=== PATIENT | female | born 1990 | race Caucasian/White ===

== ENCOUNTER → 2018-02-15 02:49 | Outpatient (CLI) | payer BC, SELFPAY ==
[2018-02-16 11:36] LABS: DHEA Sulfate 787 ug/dl (96-512)
== END ==
PROVIDERS: PCP Nurse Practitioner; Visit Provider Obstetrics & Gynecology Reproductive Endocrinology
DX: Z31.41 Encounter for fertility testing (principal)
CPT/HCPCS: 36415; 82627

== ENCOUNTER 2018-04-05 12:58 | Outpatient (REF) | payer BC, SELFPAY ==
[2018-04-05 19:11] LABS: TSH (W/Ref FT4) 1.53 uIU/mL (0.358-3.74)
== END 2018-04-05 13:18 ==
LOC: NCHCN 12:58
PROVIDERS: PCP Nurse Practitioner; Visit Provider Nurse Practitioner
DX: E03.9 Hypothyroidism, unspecified (principal)
CPT/HCPCS: 84443

== ENCOUNTER 2018-05-19 00:07 | Outpatient (CLI) | payer BC, SELFPAY ==
[2018-05-19 09:57] LABS: HCG Quant, Pregnancy < 1 mIU/mL (1-3)
== END 2018-05-19 00:27 ==
PROVIDERS: PCP Nurse Practitioner; Visit Provider Obstetrics & Gynecology Reproductive Endocrinology
DX: Z32.00 Encounter for pregnancy test, result unknown (principal)
CPT/HCPCS: 36415; 84144; 84702

== ENCOUNTER 2018-06-18 12:08 | Outpatient (CLI) | payer BC, SELFPAY ==
[2018-06-18 14:22] LABS: HCG Quant, Pregnancy < 1 mIU/mL (1-3)
[2018-06-18 23:06] LABS: Progesterone 1.2 ng/ml
== END 2018-06-18 12:28 ==
PROVIDERS: PCP Nurse Practitioner; Visit Provider Obstetrics & Gynecology Reproductive Endocrinology
DX: Z32.00 Encounter for pregnancy test, result unknown (principal)
CPT/HCPCS: 36415; 84144; 84702

== ENCOUNTER 2018-07-23 10:45 | Outpatient (CLI) | payer BC, SELFPAY ==
[2018-07-23 13:31] LABS: HCG Quant, Pregnancy < 1 mIU/mL (1-3)
[2018-07-23 22:58] LABS: Progesterone 1.3 ng/ml
== END 2018-07-23 11:05 ==
PROVIDERS: PCP Nurse Practitioner; Visit Provider Obstetrics & Gynecology Reproductive Endocrinology
DX: Z32.00 Encounter for pregnancy test, result unknown (principal)
CPT/HCPCS: 36415; 84144; 84702

== ENCOUNTER 2018-08-23 00:57 | Outpatient (CLI) | payer BC, SELFPAY ==
[2018-08-23 14:46] LABS: HCG Quant, Pregnancy 1 mIU/mL (1-3)
== END 2018-08-23 01:17 ==
PROVIDERS: PCP Nurse Practitioner; Visit Provider Obstetrics & Gynecology Reproductive Endocrinology
DX: Z32.00 Encounter for pregnancy test, result unknown (principal)
CPT/HCPCS: 36415; 84144; 84702

== ENCOUNTER 2018-10-23 14:44 | Outpatient (CLI) | payer BC, SELFPAY ==
[2018-10-23 17:11] LABS: TSH 4.56 uIU/mL (0.358-3.74)
[2018-10-23 17:36] LABS: HCG Quant, Pregnancy 396 mIU/mL (1-3)
== END 2018-10-23 15:04 ==
PROVIDERS: Obstetrics & Gynecology Reproductive Endocrinology; PCP Nurse Practitioner; Visit Provider Obstetrics & Gynecology Reproductive Endocrinology
DX: Z32.01 Encounter for pregnancy test, result positive (principal); E03.9 Hypothyroidism, unspecified
CPT/HCPCS: 36415; 84443; 84702

== ENCOUNTER 2018-10-25 08:19 | Outpatient (CLI) | payer BC, SELFPAY ==
[2018-10-25 19:06] LABS: HCG Quant, Pregnancy 1324 mIU/mL (1-3)
== END 2018-10-25 08:39 ==
PROVIDERS: PCP Nurse Practitioner; Visit Provider Obstetrics & Gynecology Reproductive Endocrinology
DX: Z32.01 Encounter for pregnancy test, result positive (principal)
CPT/HCPCS: 84702

== ENCOUNTER 2018-11-19 15:39 | Outpatient (REF) | payer BC, SELFPAY ==
[2018-11-19 16:48] LABS: *AMPHETAMINES SCREEN URINE Negative (Negative); *BARBITURATES SCREEN URINE Negative (Negative); *BENZODIAZEPINES SCREEN URINE Negative (Negative); Cannabinoids THC Negative (Negative); Cocaine Screen,Urine Negative (Negative); METHADONE URINE SCREEN Negative (Negative); OPIATES URINE SCREEN Negative (Negative)
[2018-11-19 16:50] LABS: Tricyclic Antidepressants Negative (Negative)
[2018-11-20 14:56] LABS: Chlamydia Result Negative; GC Result Negative; Specimen Description CERVIX
[2018-11-23 13:53] LABS: Buprenorphine Negative; Norbuprenorphine Negative
== END 2018-11-19 15:59 ==
LOC: LBN 15:39
PROVIDERS: PCP Nurse Practitioner; Visit Provider Advanced Practice Midwife
DX: Z34.91 Encounter for supervision of normal pregnancy, unspecified, first trimester (principal); Z11.3 Encounter for screening for infections with a predominantly sexual mode of transmission
CPT/HCPCS: 80307; 87491; 87591; 87086

== ENCOUNTER 2018-11-27 02:03 | Outpatient (CLI) | payer BC, SELFPAY ==
[2018-11-27 09:17] LABS: Abs Immature Grans 0.01 k/cumm (0.0-0.09); Absolute Basophil Count 0.01 k/cumm (0.0-0.2); Absolute Eosinophil Count 0.06 k/cumm (0.0-0.7); Absolute Lymphocyte Count 1.88 k/cumm (1.2-3.4); Absolute Neutrophil Count 5.51 k/cumm (1.2-6.7); Basophils % 0.1; Eosinophils % 0.8; HGB 14.8 g/dL (12.0-15.5); Immature Grans % 0.1; Lymphocytes % 23.6; Mean Corp. HGB Concentration 34.4 g/dL (32.0-36.0); Mean Corpuscular Hemoglobin 29.8 pg (27.0-33.0); Mean Corpuscular Volume 86.7 fL (80-95); Monocytes % 6.3; Neutrophils % 69.1; Platelet Count 240 x1000/uL (130-400); RBC 4.96 m/cumm (4.00-5.20); RBC Distribution Width 12.9 % (11.7-14.6); White Blood Cell Count 7.97 k/cumm (4.4-10.8)
[2018-11-27 09:24] LABS: Glucose,1 Hr (Glucola) 133 mg/dL (80-140)
[2018-11-27 10:08] LABS: TSH (W/Ref FT4) 1.29 uIU/mL (0.358-3.74)
[2018-11-28 09:11] LABS: Varicella IgG Antibody Positive
[2018-11-28 10:09] LABS: Syphilis Serology (RPR) Negative (Negative)
[2018-11-28 10:12] LABS: Rubella IgG Ab (UVM) Positive
[2018-11-28 10:13] LABS: Hepatitis C Ab w Rflx HCV PCR Negative (NEGAT)
[2018-11-28 10:43] LABS: HIV-1/2 Ag & Ab Screen Negative (NEGAT); Hepatitis B Surface Ag Negative (NEGAT)
[2018-11-30 17:40] LABS: Thyroid Stimulating Immunoglob <1.0 TSI index (<=1.3)
== END 2018-11-27 02:23 ==
PROVIDERS: PCP Nurse Practitioner; Visit Provider Advanced Practice Midwife
DX: Z34.91 Encounter for supervision of normal pregnancy, unspecified, first trimester (principal); Z11.4 Encounter for screening for human immunodeficiency virus [HIV]; Z11.59 Encounter for screening for other viral diseases; Z01.84 Encounter for antibody response examination
CPT/HCPCS: 80055; 82950; 86787; 86803; 86850; 86900; 86901; 87340; 87389; 84443; 84445; 86592; 86762

== ENCOUNTER 2018-12-04 10:08 | Outpatient (CLI) | payer BC, SELFPAY ==
[2018-12-04 10:32] LABS: Kit/Specimen SENT
== END 2018-12-04 10:28 ==
PROVIDERS: PCP Nurse Practitioner; Visit Provider Advanced Practice Midwife
DX: Z34.01 Encounter for supervision of normal first pregnancy, first trimester (principal); Z36.89 Encounter for other specified antenatal screening
CPT/HCPCS: 36415

== ENCOUNTER 2018-12-18 09:12 | Outpatient (CLI) | payer BC, SELFPAY ==
[2018-12-18 09:38] LABS: Kit/Specimen SENT
== END 2018-12-18 09:32 ==
PROVIDERS: PCP Nurse Practitioner; Visit Provider Advanced Practice Midwife
DX: Z34.91 Encounter for supervision of normal pregnancy, unspecified, first trimester (principal)
CPT/HCPCS: 36415

== ENCOUNTER 2019-01-17 01:59 | Outpatient (CLI) | payer BC, SELFPAY ==
[2019-01-21 11:46] LABS: AFP 36.5 ng/mL; Calculated age at EDD 31 years; Cigarette smoking status non-smoker; GA used in risk estimate Scan estimate; IVF Pregnancy No; Initial or repeat testing Initial testing; Insulin dependent diabetes No; Maternal Weight 192 lbs; Number of Fetuses 1; Prev Pregnancy w/NTD No; RECOMMENDED FOLLOW UP None.; Results Summary Normal risk
== END 2019-01-17 02:19 ==
PROVIDERS: PCP Nurse Practitioner; Visit Provider Advanced Practice Midwife
DX: Z34.91 Encounter for supervision of normal pregnancy, unspecified, first trimester (principal); Z36.89 Encounter for other specified antenatal screening
CPT/HCPCS: 36415; 82105

== ENCOUNTER 2019-02-11 00:15 | Outpatient (CLI) | payer BC, SELFPAY ==
--- NOTE | 2019-02-11 13:23 | DI.US_ITS ---
SYMPTOMS/DIAGNOSIS: ANATOMICAL SCAN, Z34.90 OB ULTRASOUND: Predicted Gestational Age: Indication/History: 20+1 Wks Range: 19+1 to 21+1 Prior US done on: Determined by: First US LMP History EDC by prior US: 06/30/19 For multiple gestations: Baby PLACENTA: Grade: I Location: X Anterior Posterior PRESENTATION: RT LT LOW LYING PREVIA Cephalic Trans (Head RT LT ) Varied X Breech BIOMETRY: Anatomy Identified: BPD: 48 mm 20+4 wks 4-chamber Heart X Heart Rate 163 BPM HC: 183 mm 20+5 wks LVOT X Post Fossa X AC: 151 mm 20+3 wks RVOT X Ventricles X FL: 34 mm 20+4 wks Stomach X Nose X Bladder X Lips X Cisterna Magna: 3 mm CI: 83 Kidneys X Palate X Cerebellum: 2.01 cm 3-vessel cord X Spine X EFW: 356 grms 64% Cord Insertion X NS= not seen Composite Age (US) 20+4 wks Many abnormalities cannot be diagnosed. A normal exam does not exclude congenital abnormality. EDC by US: 06/27/19 Amniotic Fluid Index: Normal RUQ: LUQ: RLQ: LLQ: Total: cm Biophysical Profile: Score 0/2 ART (>2cm) Respirations (>30 sec) Body flexion/extension Extremity flexion/extension TOTAL SCORE COMMENTS: OB ultrasound was performed utilizing second trimester protocol. biometry is consistent with gestational age of 20 weeks 4 days and an EDC of 06/27/19. The placenta is anterior with no evidence of placenta previa. There is a normal quantity of amniotic fluid. anomaly screen is within normal limits as per the attached checklist.
== END 2019-02-11 00:35 ==
PROVIDERS: PCP Nurse Practitioner; Visit Provider Advanced Practice Midwife
DX: Z34.90 Encounter for supervision of normal pregnancy, unspecified, unspecified trimester (principal)
CPT/HCPCS: 76805

== ENCOUNTER 2019-02-11 15:07 | Outpatient (CLI) | payer BC, SELFPAY ==
[2019-02-11 16:32] LABS: TSH (W/Ref FT4) 0.44 uIU/mL (0.36-3.74)
== END 2019-02-11 15:27 ==
PROVIDERS: PCP Nurse Practitioner; Visit Provider Advanced Practice Midwife
DX: E03.9 Hypothyroidism, unspecified (principal)
CPT/HCPCS: 36415; 84443

== ENCOUNTER 2019-04-08 08:41 | Outpatient (CLI) | payer BC, SELFPAY ==
[2019-04-08 15:42] LABS: Glucose,1 Hr (Glucola) 130 mg/dL (80-140)
[2019-04-08 15:58] LABS: HCT 38.5 % (36.0-46.0); HGB 13.1 g/dL (12.0-15.5); Mean Corpuscular Hemoglobin 30.3 pg (27.0-33.0); Mean Corpuscular Volume 88.9 fL (80-95); Mean Platelet Volume 10.3 fL (8.0-11.0); Platelet Count 238 x1000/uL (130-400); RBC 4.33 m/cumm (4.00-5.20); RBC Distribution Width 13.4 % (11.7-14.6); White Blood Cell Count 9.46 k/cumm (4.4-10.8)
[2019-04-08 16:57] LABS: FREE T4 1.08 ng/dL (0.76-1.46); TSH 0.56 uIU/mL (0.36-3.74)
== END 2019-04-08 09:01 ==
PROVIDERS: Advanced Practice Midwife; PCP Nurse Practitioner; Visit Provider Advanced Practice Midwife
DX: Z34.93 Encounter for supervision of normal pregnancy, unspecified, third trimester (principal); E03.9 Hypothyroidism, unspecified
CPT/HCPCS: 36415; 82950; 85027; 84439; 84443

== ENCOUNTER 2019-04-22 16:11 | Outpatient (CLI) | payer BC, SELFPAY ==
[2019-04-29 17:54] LABS: Thyroid Stimulating Immunoglob <1.0 TSI index (<=1.3)
== END 2019-04-22 16:31 ==
PROVIDERS: PCP Nurse Practitioner; Visit Provider Advanced Practice Midwife
DX: E05.00 Thyrotoxicosis with diffuse goiter without thyrotoxic crisis or storm (principal)
CPT/HCPCS: 36415; 84445

== ENCOUNTER 2019-05-08 02:03 | Outpatient (CLI) | payer BC, SELFPAY ==
--- NOTE | 2019-05-08 15:45 | DI.US_ITS ---
EXAM: US OB ART WEIGHT CLINICAL HISTORY: check growth, neck/thyroid for enlargement, graves disease, E05.00 TECHNIQUE: Ultrasound performed using standard protocol. COMPARISON: US OB 2-3 trimester from 02/11/2019 FINDINGS: Ob ultrasound was performed utilizing 3rd trimester protocol. biometry is consistent with ge stational age of 32 weeks 5 days and EDC of 06/28/2019. Estimated weight is 2018 grams which is at the 46th percentile for predicted gestational age. Placenta is anterior with no evidence of placenta previa. There is visually a normal quantity of amniotic fluid and the ART is 19. Fetus is in cephalic presentation. cardiac activity observed at a rate of 150 BPM.
== END 2019-05-08 02:23 ==
PROVIDERS: PCP Nurse Practitioner; Visit Provider Advanced Practice Midwife
DX: E05.00 Thyrotoxicosis with diffuse goiter without thyrotoxic crisis or storm (principal); O99.283 Endocrine, nutritional and metabolic diseases complicating pregnancy, third trimester
CPT/HCPCS: 76816

== ENCOUNTER 2019-06-07 01:58 | Outpatient (CLI) | payer BC, SELFPAY ==
--- NOTE | 2019-06-07 10:09 | DI.US_ITS ---
EXAM: US OB ART AND WEIGHT CLINICAL HISTORY: TECHNIQUE: Ultrasound performed using standard protocol. COMPARISON: US OB ART WEIGHT from 05/08/2019 FINDINGS: There is a single living intrauterine gestation. The fetus is in the cephalic presentation. h eart rate is 137 beats per minute. The neck was visualized and appears unremarkable. There appears to be normal flexion of the ne ck. A complete anatomic evaluation was not performed at this time. Estimated weight is 2853 grams, which is the 38th percentile. Amniotic fluid index is 12.4 centimeters. Visually the amniotic fluid appears within normal limits. The placenta is anterior without evidence of previa. IMPRESSION: Single living intrauterine gestation. Estimated sonographic age is 35 weeks 5 days.
== END 2019-06-07 02:18 ==
PROVIDERS: PCP Nurse Practitioner; Visit Provider Advanced Practice Midwife
DX: Z34.93 Encounter for supervision of normal pregnancy, unspecified, third trimester (principal); Z36.2 Encounter for other antenatal screening follow-up
CPT/HCPCS: 76816

== ENCOUNTER 2019-06-07 10:43 | Outpatient (CLI) | payer BC, SELFPAY ==
[2019-06-07 12:18] LABS: TSH (W/Ref FT4) 1.76 uIU/mL (0.36-3.74)
== END 2019-06-07 11:03 ==
PROVIDERS: PCP Nurse Practitioner; Visit Provider Advanced Practice Midwife
DX: O99.283 Endocrine, nutritional and metabolic diseases complicating pregnancy, third trimester (principal)
CPT/HCPCS: 36415; 84443

== ENCOUNTER 2019-06-07 12:00 | Outpatient (REF) | payer BC, SELFPAY ==
[2019-06-07 14:57] LABS: *AMPHETAMINES SCREEN URINE Negative (Negative); *BARBITURATES SCREEN URINE Negative (Negative); *BENZODIAZEPINES SCREEN URINE Negative (Negative); Cannabinoids THC Negative (Negative); Cocaine Screen,Urine Negative (Negative); METHADONE URINE SCREEN Negative (Negative); OPIATES URINE SCREEN Negative (Negative)
[2019-06-07 15:13] LABS: Tricyclic Antidepressants Negative (Negative)
[2019-06-13 07:31] LABS: Buprenorphine Negative; Norbuprenorphine Negative
== END 2019-06-07 12:20 ==
LOC: LBN 12:00
PROVIDERS: PCP Nurse Practitioner; Visit Provider Advanced Practice Midwife
DX: Z34.93 Encounter for supervision of normal pregnancy, unspecified, third trimester (principal); Z36.85 Encounter for antenatal screening for Streptococcus B
CPT/HCPCS: 80307; 87081

== ENCOUNTER 2019-06-29 16:03 | Inpatient (IN) | payer BC, SELFPAY ==
[2019-06-29 16:26] LABS: HCT 38.4 % (36.0-46.0); HGB 13.1 g/dL (12.0-15.5); Mean Corp. HGB Concentration 34.1 g/dL (32.0-36.0); Mean Corpuscular Hemoglobin 30.1 pg (27.0-33.0); Mean Corpuscular Volume 88.3 fL (80-95); Platelet Count 190 x1000/uL (130-400); RBC 4.35 m/cumm (4.00-5.20); RBC Distribution Width 13.6 % (11.7-14.6); White Blood Cell Count 9.32 k/cumm (4.4-10.8)
[2019-06-29] MEDS: Lactated Ringers 1,000 ML 125 ML IV (16:41)
[2019-06-29] MEDS: Normal Saline Flush 10 ML SYR IVP (16:43)
[2019-06-29] MEDS: Penicillin G POT. 5,000,000 UNITS in Normal Saline 100 ML 200 UNITS IVPB (16:44)
[2019-06-29] MEDS: Oxytocin 10 UNITS/ML VIAL IM (23:10)
[2019-06-30] MEDS: Hamamelis Leaf/Glycerin 100 EACH BOX PR (01:44)
[2019-06-30 07:04] LABS: HCT 34.9 % (36.0-46.0); HGB 11.7 g/dL (12.0-15.5); Mean Corp. HGB Concentration 33.5 g/dL (32.0-36.0); Mean Corpuscular Hemoglobin 29.8 pg (27.0-33.0); Mean Platelet Volume 11.2 fL (8.0-11.0); Platelet Count 213 x1000/uL (130-400); RBC 3.92 m/cumm (4.00-5.20); RBC Distribution Width 13.6 % (11.7-14.6); White Blood Cell Count 16.61 k/cumm (4.4-10.8)
[2019-06-30] MEDS: Methylergonovine 0.2 MG/ML VIAL IM (10:19)
[2019-06-30] MEDS: Ibuprofen 600 MG TAB PO ×2 (16:27→23:15)
[2019-06-30] MEDS: Acetaminophen 325 MG TAB 650 MG PO ×2 (16:27→23:15)
[2019-06-30] MEDS: Methylergonovine 0.2 MG TAB PO (18:27)
[2019-07-01] MEDS: Methylergonovine 0.2 MG TAB PO (01:59)
[2019-07-01] MEDS: Ibuprofen 600 MG TAB PO (08:14)
[2019-07-01] MEDS: Acetaminophen 325 MG TAB 650 MG PO (08:14)
== END 2019-07-01 11:30 | disposition home or self-care (01) | DRG 807 ==
PROVIDERS: Admitting Provider Advanced Practice Midwife; PCP Nurse Practitioner; Visit Provider Advanced Practice Midwife
DX: O70.0 First degree perineal laceration during delivery (principal); Z37.0 Single live birth; Z3A.39 39 weeks gestation of pregnancy; O69.1XX0 Labor and delivery complicated by cord around neck, with compression, not applicable or unspecified; O99.824 Streptococcus B carrier state complicating childbirth; O42.02 Full-term premature rupture of membranes, onset of labor within 24 hours of rupture; O99.284 Endocrine, nutritional and metabolic diseases complicating childbirth; O90.89 Other complications of the puerperium, not elsewhere classified; N31.2 Flaccid neuropathic bladder, not elsewhere classified; E89.0 Postprocedural hypothyroidism; Z79.82 Long term (current) use of aspirin
CPT/HCPCS: 36415; 85027; 86850; 86900; 86901; J2210; J2540; J2590

== ENCOUNTER 2020-05-04 18:58 | Outpatient (REF) | payer BC, SELFPAY ==
[2020-05-04 19:16] LABS: TSH (W/Ref FT4) 0.06 uIU/mL (0.36-3.74)
[2020-05-04 19:33] LABS: FREE T4 1.35 ng/dL (0.76-1.46)
== END 2020-05-04 19:18 ==
LOC: NCHCN 18:58
PROVIDERS: PCP Nurse Practitioner; Visit Provider Nurse Practitioner
DX: E03.9 Hypothyroidism, unspecified (principal)
CPT/HCPCS: 84439; 84443

== ENCOUNTER 2021-05-12 10:40 | Outpatient (REF) | payer BC, SELFPAY ==
[2021-05-12 16:54] LABS: TSH (W/Ref FT4) 0.46 uIU/mL (0.36-3.74)
== END 2021-05-12 10:41 | disposition home or self-care (01) ==
LOC: NCHCN 10:40
PROVIDERS: PCP Nurse Practitioner; Visit Provider Nurse Practitioner
DX: E03.9 Hypothyroidism, unspecified (principal)
CPT/HCPCS: 84443

== ENCOUNTER 2021-11-08 11:37 | Outpatient (REF) | payer BC, SELFPAY ==
--- NOTE | 2021-11-08 10:00 | PAPFT_PTH ---
PATIENT: Michela Argueta LOC: [facility] U#:[id number] AGE/SX: 31/F ROOM: RE11/08/[address]: Ade Altamirano CNM : 1990 BED: DIS: 11/08/2021 SPEC #: [id number] RECD: 11/08/21 13:13 STATUS: EZEQUIEL REQ #: [id number] JANETTE: 11/08/21 10:[address]: Ade Altamirano DEPT: [facility] Cytology RECD BY: Meka Manzanares ENTERED: 11/08/21 13:14 SP TYPE: PAPFT OTHR DR: Roxann Alcantar Tissues: 1 - CX/ENDOCX FOR PAP SMEARS Procedures: PAP THIN PREP/[facility] Screening HPV DNA PROBE Comments: [id number]
== END 2021-11-08 11:38 | disposition home or self-care (01) ==
LOC: LBN 11:37
PROVIDERS: PCP Nurse Practitioner; Visit Provider Advanced Practice Midwife
DX: Z12.4 Encounter for screening for malignant neoplasm of cervix (principal); Z87.410 Personal history of cervical dysplasia; Z11.51 Encounter for screening for human papillomavirus (HPV)
CPT/HCPCS: 88142; 87624

== ENCOUNTER 2022-07-25 16:53 | Outpatient (REF) | payer BC, SELFPAY ==
[2022-07-25 17:22] LABS: Calculated LDL 110 mg/dL (<100); Cholesterol 196 mg/dL (<200); HDL Cholesterol 50 mg/dL (40-60); TSH 0.48 uIU/mL (0.36-3.74); Triglyceride 181 mg/dL (<150)
== END 2022-07-25 16:54 | disposition home or self-care (01) ==
LOC: NCHCN 16:53
PROVIDERS: PCP Physician Assistant; Visit Provider Physician Assistant
DX: E03.9 Hypothyroidism, unspecified (principal); Z13.220 Encounter for screening for lipoid disorders
CPT/HCPCS: 80061; 84443

== ENCOUNTER 2022-12-12 02:10 | Outpatient (CLI) | payer BC, SELFPAY ==
--- NOTE | 2022-12-12 | DI.RAD_ITS ---
Exam(s) XR FOOT LT COMPLETE EXAM: XR FOOT LT COMPLETE CLINICAL HISTORY: LT FOOT JOINT PAIN, M79.672, CHRONIC PAIN OVER DORSUM OF LT FOOT. TECHNIQUE: 2D digital imaging was performed. COMPARISON: No exams were available for comparison FINDINGS: 3 views No evidence of fracture nor diastasis of the Anna sophia joint. Bone density normal. No osseous lesio ns. No erosions. Bipartite medial hallucal sesamoid noted. Moderate size inferior calcaneal spur n oted. IMPRESSION: As above. DATA REPOSITORY: RADIATION DOSE DELIVERED:
== END 2022-12-12 02:30 ==
LOC: DI 02:11
PROVIDERS: PCP Physician Assistant; Visit Provider Physician Assistant
DX: M79.672 Pain in left foot (principal)
CPT/HCPCS: 73630

== ENCOUNTER 2022-12-19 07:50 | Emergency (ER) | payer BC, SELFPAY ==
[2022-12-19 07:54] VITALS: BP 129/67; PULSE 82; RESP 18; TEMP 37.1; O2SAT 99
--- NOTE | 2022-12-19 08:06 | DI.CT_ITS ---
Exam(s) CT LUMBAR SPINE RECONS CT ABDOMEN PELVIS W EXAM: CT ABDOMEN PELVIS W CLINICAL HISTORY: left lower abdomen and back pain. TECHNIQUE: Imaging Protocol: Axial computed tomography images with coronal and sagittal reformatted images were created and reviewed CONTRAST MATERIAL: Intravenous: Omnipaque 350 Contrast volume:100 ml Oral: / no COMPARISON: No exams were available for comparison FINDINGS: ABDOMEN: Lung Bases: Normal where visualized. Liver: Normal density. No measurable mass. Gallbladder and biliary tract: No radiodense calculus or dilation. Pancreas: Normal density, no abnormal calcifications or inflammatory process. Spleen: Normal. Kidneys: Normal size, contour and axis. No radiodense stones or obstructive uropathy. No suspicious m asses seen. Adrenal glands: No masses seen. Abdominal Aorta: Abdominal portion non-dilated. Soft tissues: Unremarkable. PELVIS: Bladder: No gross wall thickening. No calculi.No focal mass. Bowel:: Nearly free of stool. No obstruction. No bowel wall thickening. Appendix normal. Peritoneal cavity: No ascites, collection or mesenteric inflammatory response. Bones: Unremarkable for age. Reproductive organs: Within normal limits. Lymph nodes: Unremarkable. CT lumbar spine: Vertebral bodies are intact. No fracture. No lytic or blastic lesion. No evidence of disc herniation. Impression: Unremarkable CT scan of the abdomen and pelvis. Unremarkable lumbar spine. RADIATION DOSE DELIVERED: 1229.6 mGy.cm Total DLP DATA REPOSITORY: All CT scans at this facility are submitted to the National Radiology Data Registry (NRDR) Dose Index Registry (DIR) with the [employer] (A[employer]). RADIATION OPTIMIZATION: All CT scans at this facility use at least one of these dose optimization te chniques: automated exposure control; mA and/or kV adjustment per patient size (includes targeted exa ms where dose is matched to clinical indication); or iterative reconstruction.
--- NOTE | 2022-12-19 08:10 | ED.GENADUL_ITS ---
Discharge Plan Disposition Patient Disposition: Home Condition: Stable Discharge Details Clinical Impression: Lumbar back pain Primary Care Provider: Renato Poole ED Provider: Howard Munguia Home Meds and New Rx's Prescriptions: New cyclobenzaprine 10 mg tablet 10 mg PO TID PRNQty: 20 0RF Continued paroxetine HCl [Paxil] 10 mg tablet 10 mg PO DAILY multivitamin Tablet 1 tab PO DAILY levothyroxine 125 mcg tablet 125 mcg PO DAILY Patient Comments: [facility] follows thyroid levels. Discharge Instructions Instructions: Back Pain (ED) Additional Instructions: Follow up with your primary care provider if not improving within a week if you develop fevers, feel more ill, have difficulty urinating or severe worsening of pain return to the emergency department Medical Decision Making 32 yo female with hx of grave's disease who comes in with cc of lower back and left lower abdomen pain since yesterday morning. Denies falls or trauma, no vaginal discharge or bleeding, no n/v no fevers no chest pain or dyspnea. Denies ivdu, denies difficulty with urination. She can't think of anything that makes the pain better or worse. She arrives stable speaking clearly in no distress. She localizes the pain throughout the lumbar region with the left hurting more then the right. She has no visible or palpable deformities, no rashes or warmth to palpation, no saddle anesthesia, intact distal sensation and pulses. She does have tenderness on abdominal exam in the llq without guarding or rebound. No pain elsewhere on the abdomen. Unclear etiology for the pain though suspect musculoskeletal back pain. No findings on history or exam to suggest cauda equina or spinal epidural abscess. Given location of abdominal pain concern for possible diverituclitis, will proceed with cbc, cmp, lipase and ct abd/pelvis with lumbar spine recon's though concern for fracture is low. Will treat with norflex and toradol and reassess. pt feels better after meds, still no saddle anesthesia and no difficulty urinating. Imaging and labs unremarkable, suspect musculoskeletal back pain. Will have her use ibuprofen and tylenol and prescribe flexeril, advised to f/u w ith pcp, return precautions given Differential Diagnosis Differential Diagnosis: muscle spasm, diveriticulitis, kidney stone Medical Records Medical records reviewed: Yes I reviewed the patient's medical records. Imaging Data Radiologic Study: Attestation: I personally reviewed and interpreted this imaging study as follows: Imaging: CT Scan Radiologist's impression: no acute findings Lab Data Lab results reviewed: Yes I reviewed the patient's lab results. HPI General Mode of arrival: ambulatory . Date/Time Provider Initiated Documentation: 12/19/22 07:57 . Limitations to Documentation: no limitations . Information obtained by: patient . History of Present Illness 32 year old F presents to the emergency department with the chief complaint of lower back pain, described as moderate, Quality is described as aching, Patient started experiencing this day(s) (1) and it has been constant. No relieving factors improve symptom(s), No exacerbating factors reported . Patient notes denies fever/chills. Patient did receive the following treatments prior to arrival, none Related Data Home Medications Medication Instructions Recorded Confirmed levothyroxine 125 mcg tablet 125 mcg PO DAILY 11/08/21 12/19/22 multivitamin 1 tab PO DAILY 11/08/21 12/19/22 paroxetine HCl 10 mg tablet (Paxil) 10 mg PO DAILY 11/08/21 12/19/22 cyclobenzaprine 10 mg tablet 10 mg PO TID PRN #20 tabs 12/19/22 Previous Rx's Medication Instructions Recorded cyclobenzaprine 10 mg tablet 10 mg PO TID PRN #20 tabs 12/19/22 Allergies Allergy/AdvReac Type Severity Reaction Status Date / Time shellfish derived Allergy Verified 12/19/22 08:06 General Stated Complaint: Nk/Back Pain GABRIELA: 3 Review of Systems All systems reviewed & are unremarkable except as noted in HPI and below Constitutional Constitutional: Denies chills, Denies fever(s) and Denies weakness Cardiovascular Cardiovascular: Denies chest pain and Denies dyspnea Respiratory Respiratory: Denies cough and Denies dyspnea Gastrointestinal Gastrointestinal: Denies nausea and Denies vomiting Musculoskeletal Musculoskeletal: Denies joint swelling Neurologic Neurologic: Denies weakness PFSH All Active Problems (Updated 12/19/22 @ 09:45 by Howard Munguia MD) Lumbar back pain (Acute) Well woman exam with routine gynecological exam (Acute) Reproductive mgmt, 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 (Acute) Graves' disease (Acute) BMI 34.0-34.9,adult (Acute) Hypothyroidism (acquired) (Acute) (Acute) Medical History (Updated 12/19/22 @ 09:45 by Howard Munguia MD) Cervical intraepithelial neoplasia grade 1 (05/21/14) Hypothyroid Social History Smoking/Tobacco Use Status: Former Tobacco Use Smoking risk assessment performed?: Yes Alcohol Intake: former Drug use: Never Substance use type: does not use Do you feel safe at home: Yes Do you feel safe in your relationship?: Yes History History 1 Para 1 Hx # Term Pregnancies 1 Multiple births 0 Hx # Pregnancies 0 Ectopic pregnancies 0 AB induced 0 Hx Number of Living Children 1 AB spontaneous 0 Past Pregnancies Del. Date GA/Weeks # Preg Succ Route Wgt Sex Labor Lgth Anesth esia Location Prov Complic 39 No vaginal 3458.642 g Female 8 hrs 41 min [facility] Delivery Date: Last Updated by: Kristin Reaves LPN tight nuchal cord x1; perineal, labial laceration needed repair Exam Const General: no acute distress Orientation: alert HENMT Head: normal to inspection Ears: external ears normal General nose exam: external nose normal Mouth: moist mucous membranes Eyes General: appearance normal, both eyes and all related structures Neck Neck: normal visual inspection Resp Effort & Inspection: normal respiratory effort and able to speak in complete sentences Cardio Rate: regular rate GI Palpation: soft and nontender Back/Spine/Pelvis Back: no CVA tenderness Thoracic/Lumbar Spine: thoracic and lumbar spine normal to inspection Skin General skin exam: no rashes or lesions noted Neuro General: patient alert and patient oriented x3 Extrem General: normal to inspection Psych Mental Status: mental status grossly normal Course Vital Signs Vital signs: Vital Signs Temperature 37.1 C 12/19/22 07:54 Pulse 82 12/19/22 07:54 Respiratory Rate 18 12/19/22 07:54 Blood Pressure 129/67 12/19/22 07:54 Pulse Oximetry 99 12/19/22 07:54 Temperature 37.1 C 12/19/22 07:54 Temperature Source Temporal Artery Scan 12/19/22 07:54 Pulse 82 12/19/22 07:54 Respiratory Rate 18 12/19/22 07:54 Respiratory Effort Normal, Non-Labored 12/19/22 07:59 Blood Pressure 129/67 12/19/22 07:54 Blood Pressure Position Sitting 12/19/22 07:54 Pulse Oximetry 99 12/19/22 07:54 Oxygen Delivery Method Room Air 12/19/22 07:54 Oxygen Flow Rate 0 12/19/22 07:54 Pain Level 10 12/19/22 08:03
[2022-12-19 08:27] LABS: Abs Immature Grans 0.04 10^3/uL (0.0-0.06); Absolute Basophil Count 0.06 10^3/uL (0.0-0.2); Absolute Eosinophil Count 0.23 10^3/uL (0.0-0.7); Absolute Lymphocyte Count 2.42 10^3/uL (1.2-3.4); Absolute Monocyte Count 0.47 10^3/uL (0.1-0.8); Absolute Neutrophil Count 5.43 10^3/uL (1.2-6.7); Basophils % 0.7; Eosinophils % 2.7; HCT 46.8 % (36.0-46.0); HGB 15.7 g/dL (11.2-15.7); Immature Grans % 0.5; MCH 29.3 pg (27.0-33.0); MCHC 33.5 % (32.0-36.0); MCV 88 fL (80-95); MPV 9.6 fL (8.0-11.0); Monocytes % 5.4; Neutrophils % 62.7; Platelet Count 268 10^3/uL (130-400); RBC 5.35 10^6/uL (3.93-5.22); RDW 13.1 % (11.7-14.6); RDW-SD 41.9 fL; WBC 8.65 10^3/uL (4.4-10.8)
[2022-12-19] MEDS: Ketorolac 15 MG/ML VIAL IVP (08:28)
[2022-12-19] MEDS: Orphenadrine 60 MG/2 ML VIAL IVP (08:28)
[2022-12-19] MEDS: Omnipaque 350 MG/ML 100 ML BTL IJ (08:49)
[2022-12-19 08:50] LABS: ALT 23 U/L (14-59); AST 15 U/L (15-37); Albumin 3.7 g/dL (3.4-5.0); Alkaline Phosphatase 86 U/L (46-116); Anion Gap 6.1 mmol/L (3-11); BUN 12 mg/dL (7-18); Bilirubin, Total 0.5 mg/dL (0.2-1.0); CO2 29.9 mmol/L (21.0-32.0); CREATININE 0.9 mg/dL (0.55-1.02); Calcium 8.6 mg/dL (8.5-10.1); Chloride 99 mmol/L (98-107); Estimated GFR 86.03 (mL/min/1.73m2); Glucose 106 mg/dL (74-106); Lipase 30 U/L (16-77); Magnesium 2.1 mg/dL (1.8-2.4); Potassium 3.9 mmol/L (3.5-5.1); Sodium 135 mmol/L (136-145); TSH (W/Ref FT4) 1.44 uIU/mL (0.36-3.74); Total Protein 7.9 g/dL (6.4-8.2)
[2022-12-19] MEDS: Normal Saline - Diluent 50 ML VIAL IJ (08:50)
[2022-12-19 08:52] LABS: Bilirubin Negative (Negative); Blood Negative (Negative); Clarity Clear (Clear); Glucose Negative (Negative); Ketones Negative (Negative); Leukocyte Esterase Negative (Negative); Nitrite Negative (Negative); Specific Gravity 1.015 (1.005-1.025); Urobilinogen 0.2 mg/dL (Up to 0.2); pH 7.5 (5-8)
[2022-12-19 09:48] VITALS: BP 131/84; PULSE 71; RESP 18; TEMP 36.8; O2SAT 96
== END 2022-12-19 09:53 | disposition home or self-care (01) ==
PROVIDERS: Emergency Provider Emergency Medicine; PCP Physician Assistant
DX: M54.9 Dorsalgia, unspecified (principal)
CPT/HCPCS: 36415; 80053; 81025; 83690; 96374; 96375; 99285; J2360; 74177; 81003; 83735; 84443; 85025; 99284; J1885; J3490

== ENCOUNTER 2023-12-25 16:41 | Outpatient (REF) | payer BC, SELFPAY ==
[2023-12-25 17:43] LABS: Calculated LDL 104 mg/dL (<100); Cholesterol 193 mg/dL (<200); HDL Cholesterol 50 mg/dL (40-60); TSH 1.13 uIU/Ml (0.36-3.74); Triglyceride 197 mg/dL (<150)
== END 2023-12-25 16:42 | disposition home or self-care (01) ==
LOC: NCHCN 16:41
PROVIDERS: PCP Physician Assistant; Visit Provider Physician Assistant
DX: E03.9 Hypothyroidism, unspecified (principal); E78.5 Hyperlipidemia, unspecified
CPT/HCPCS: 80061; 84443

== ENCOUNTER 2024-10-01 16:59 | Outpatient (REF) | payer BC, SELFPAY ==
[2024-10-02 12:44] LABS: Chlamydia Result Negative (Negative); GC Result Negative (Negative)
== END 2024-10-01 17:00 | disposition home or self-care (01) ==
LOC: LBN 16:59
PROVIDERS: PCP Physician Assistant; Visit Provider Nurse Practitioner Family
DX: J02.9 Acute pharyngitis, unspecified (principal)
CPT/HCPCS: 87491; 87591; 87070

== ENCOUNTER 2025-03-24 14:24 | Outpatient (REF) | payer BC, SELFPAY ==
[2025-03-24 16:20] LABS: TSH 1.93 uIU/mL (0.36-3.74)
[2025-03-24 17:27] LABS: Hemoglobin A1C 5.2 % (<5.7)
== END 2025-03-24 14:25 | disposition home or self-care (01) ==
LOC: NCHCN 14:24
PROVIDERS: PCP Physician Assistant; Visit Provider Physician Assistant
DX: E03.9 Hypothyroidism, unspecified (principal); Z13.1 Encounter for screening for diabetes mellitus
CPT/HCPCS: 83036; 84443